=== PATIENT | male | born 1990 | race Caucasian/White ===

== ENCOUNTER 2017-05-25 00:24 | Emergency (ER) | payer BC ==
--- NOTE | 2017-05-25 00:29 | EDM.PDOC ---
ED HPI GENERAL MEDICAL PROBLEM - General Stated Complaint: AMBULANCE Time Seen by Provider: 05/25/17 00:27 - History of Present Illness INITIAL COMMENTS - FREE TEXT/NARRATIVE: HISTORY AND PHYSICAL: History of present illness: Patient 27-year-old white male who presents status post having drank in quite a bit of alcohol per his girlfriend he was nauseous at home she induced vomiting and he presents now for evaluation he comes via paramedics he is awake follows commands moves all extremities and is cooperative patient and girlfriend deny drugs denies trauma denies fever chills or other concern Review of systems: As per history of present illness and below otherwise all systems reviewed and negative. Past medical history: As per history of present illness and as reviewed below otherwise noncontributory. Surgical history: As per history of present illness and as reviewed below otherwise noncontributory. Social history: No reported history of drug or alcohol abuse. Family history: As per history of present illness and as reviewed below otherwise noncontributory. Physical exam: HEENT: Atraumatic, normocephalic, pupils reactive, negative for conjunctival pallor or scleral icterus, mucous membranes moist, throat clear, neck supple, nontender, trachea midline. Lungs: Clear to auscultation, breath sounds equal bilaterally, chest nontender. Heart: S1S2, regular, negative for clicks, rubs, or JVD. Abdomen: Soft, nondistended, nontender. Negative for masses or hepatosplenomegaly. Negative for costovertebral tenderness. Pelvis: Stable nontender. Genitourinary: Deferred. Rectal: Deferred. Extremities: Atraumatic, negative for cords or calf pain. Neurovascular unremarkable. Neuro: Awake, follows commands moves all extremities since oriented to person place and has limited but grossly nonfocal exam Diagnostics: CBC CMP chest x-ray CT brain Therapeutics: Normal saline 1 L bolus Zofran 4 mg IV Impression: #1 ethanol abuse Definitive disposition and diagnosis as appropriate pending reevaluation and review of above. - Related Data Allergies Allergy/AdvReac Type Severity Reaction Status Date / Time No Known Allergies Allergy Verified 05/25/17 00:35 Home Meds: Home Meds . [No Known Home Meds] 05/25/17 [History] ED ROS GENERAL - Review of Systems Review Of Systems: ROS reveals no pertinent complaints other than HPI. ED EXAM, GENERAL - Physical Exam Exam: See Below (The dictation) Course - Vital Signs Last Recorded V/S: Last Vital Signs Temp 36.4 C 05/25/17 00:24 Pulse 139 H 05/25/17 00:24 Resp 16 05/25/17 00:24 BP 139/90 05/25/17 00:24 Pulse Ox 98 05/25/17 00:24 - Orders/Labs/Meds Orders: Active Orders 24 hr Category Date Time Status Chest 1V Frontal [CR] Stat Exams 05/25/17 00:33 Taken Head wo Cont [CT] Stat Exams 05/25/17 00:31 Taken Sodium Chloride 0.9% [Normal Saline] 1,000 ml Med 05/25/17 00:30 Active IV .BOLUS Medication Orders Sodium Chloride (Normal Saline) 1,000 mls @ 999 mls/hr IV .BOLUS ONE Stop: 05/25/17 01:30 Last Admin: 05/25/17 01:03 Dose: 999 mls/hr Labs: Laboratory Tests 05/25/17 05/25/17 Range/Units 00:30 00:30 WBC 7.97 (4.0-11.0) K/uL RBC 4.60 (4.50-5.90) M/uL Hgb 14.8 (13.0-17.0) g/dL Hct 44.9 (38.0-50.0) % MCV 97.6 (80.0-98.0) fL MCH 32.2 H (27.0-32.0) pg MCHC 33.0 (31.0-37.0) g/dL RDW Std Deviation 47.9 (28.0-62.0) fl RDW Coeff of [place] 14 (11.0-15.0) % Plt Count 344 (150-400) K/uL MPV 9.10 (7.40-12.00) fL Neut % (Auto) 43.6 L (48.0-80.0) % Lymph % (Auto) 41.5 H (16.0-40.0) % Centre % (Auto) 12.0 (0.0-15.0) % Eos % (Auto) 2.4 (0.0-7.0) % Baso % (Auto) 0.5 (0.0-1.5) % Neut # (Auto) 3.5 (1.4-5.7) K/uL Lymph # (Auto) 3.3 H (0.6-2.4) K/uL Centre # (Auto) 1.0 H (0.0-0.8) K/uL Eos # (Auto) 0.2 (0.0-0.7) K/uL Baso # (Auto) 0.0 (0.0-0.1) K/uL Sodium 142 (136-146) mmol/L Potassium 3.6 (3.5-5.1) mmol/L Chloride 107 (98-110) mmol/L Carbon Dioxide 24 (21-31) mmol/L BUN 11 (6.0-23.0) mg/dL Creatinine 1.1 (0.6-1.5) mg/dL Est Cr Clr Drug Dosing 112.99 mL/min Estimated GFR (MDRD) > 60.0 ml/min Glucose 117 H (60-110) mg/dL Calcium 9.4 (8.8-10.8) mg/dL Total Bilirubin 0.2 (0.1-1.5) mg/dL AST 48 H (5-40) IU/L ALT 63 H (8-54) IU/L Alkaline Phosphatase 75 (40-150) Total Protein 7.7 (6.0-8.0) g/dL Albumin 4.4 (3.5-5.0) g/dL Globulin 3.3 (2.0-3.5) g/dL Albumin/Globulin Ratio 1.3 (1.3-2.8) Meds: Medications Generic Name Dose Route Start Last Admin Trade Name Freq PRN Reason Stop Dose Admin Sodium Chloride 1,000 mls @ 999 mls/hr 05/25/17 00:30 05/25/17 01:03 Normal Saline IV 05/25/17 01:30 999 mls/hr .BOLUS ONE Administration Discontinued Medications Generic Name Dose Route Start Last Admin Trade Name Freq PRN Reason Stop Dose Admin Ondansetron HCl 4 mg 05/25/17 00:30 05/25/17 01:04 Zofran IVPUSH 05/25/17 00:31 4 mg ONETIME ONE Administration Departure - Departure Time of Disposition: 01:15 Disposition: Home, Self-Care 01 Condition: Good Clinical Impression: Alcohol abuse - Discharge Information Additional Instructions: The following information is given to patients seen in the emergency department who are being discharged to home. This information is to outline your options for follow-up care. We provide all patients seen in our emergency department with a follow-up referral. The need for follow-up, as well as the timing and circumstances, are variable depending upon the specifics of your emergency department visit. If you don't have a primary care physician on staff, we will provide you with a referral. We always advise you to contact your personal physician following an emergency department visit to inform them of the circumstance of the visit and for follow-up with them and/or the need for any referrals to a consulting specialist. The emergency department will also refer you to a specialist when appropriate. This referral assures that you have the opportunity for followup care with a specialist. All of these measure are taken in an effort to provide you with optimal care, which includes your followup. Under all circumstances we always encourage you to contact your private physician who remains a resource for coordinating your care. When calling for followup care, please make the office aware that this follow-up is from your recent emergency room visit. If for any reason you are refused follow-up, please contact the [facility] emergency department at and asked to speak to the emergency department charge nurse. Follow-up primary medical doctor 24-48 hours return as needed as discussed - My Orders Last 24 Hours: My Active Orders 05/25/17 00:30 Sodium Chloride 0.9% [Normal Saline] 1,000 ml IV .BOLUS 05/25/17 00:31 Head wo Cont [CT] Stat 05/25/17 00:33 Chest 1V Frontal [CR] Stat - Assessment/Plan Last 24 Hours: My Active Orders 05/25/17 00:30 Sodium Chloride 0.9% [Normal Saline] 1,000 ml IV .BOLUS 05/25/17 00:31 Head wo Cont [CT] Stat 05/25/17 00:33 Chest 1V Frontal [CR] Stat
[2017-05-25] MEDS ORDERED: Sodium Chloride 0.9% 1,000 ML IV ONE (00:30)
[2017-05-25] MEDS ORDERED: Ondansetron 4 MG/2 ML SDV IVPUSH ONE (00:30)
[2017-05-25 00:40] VITALS: BP 139/90
[2017-05-25 01:10] LABS: CHLORIDE,CL 107 mmol/L (98-110); SODIUM,NA 142 mmol/L (136-146)
--- NOTE | 2017-05-27 10:21 | CT ---
EXAM DATE: 05/25/17 PATIENT'S AGE: 27 Patient: LULÚ MALIK Facility: [place], [place] Site Site : 1990 Study: CT Head WO CONT [id number]/16/2017 1:06:48 AM Ordering Physician: LILIAM BONILLA MD Final Report: INDICATION: ETOH , change in mental status TECHNIQUE: CT head without contrast. COMPARISON: None FINDINGS: CSF spaces: Within normal limits for age. Brain parenchyma: The stoll-white differentiation is normal. No sign of mass, hemorrhage, or midline shift. Skull base and calvarium: The visualized paranasal sinuses and mastoid air cells demonstrate no acute or significant findings. The visualized orbits are grossly unremarkable. No skull fractures. IMPRESSION: Unremarkable noncontrast head CT. Dictated by Clyde Falk MD @ 05/25/2017 1:15:30 AM Dictated by: Clyde Falk MD @ 05/25/2017 01:15:34 (Electronic Signature) Report Signed by Proxy. [facility]ITALPedro Luis
--- NOTE | 2017-05-27 10:27 | CR ---
EXAM DATE: 05/25/17 PATIENT'S AGE: 27 Patient: LULÚ MALIK Facility: [place], [place] Site . Site : 1990 Study: XRay Chest [id number]/16/2017 1:07:08 AM Ordering Physician: Leyla Horvath Final Report: INDICATION: ETOH. ALTERED LOC TECHNIQUE: Chest 1 view. COMPARISON: None. FINDINGS: Cardiovascular and mediastinum: Heart size and vasculature are normal in caliber and appearance. Mediastinum is within normal limits. Lungs and pleural space: Lungs are clear. No sign of infiltrate or mass. No sign of pleural effusion. No pneumothorax. Bones and soft tissues: No significant findings. IMPRESSION: Unremarkable chest. Dictated by: Clyde Falk MD @ 05/25/2017 01:11:25 (Electronic Signature) Report Signed by Proxy. [facility]ENTERPedro Luis
== END 2017-05-25 01:24 | disposition home or self-care (01) ==
LOC: MW.ED 00:24
DX: F10.10 Alcohol abuse, uncomplicated (principal)
CPT/HCPCS: 36415; 70450; 71010; 80053; 85025; 96374; 99285; J2405; J7040; 99282